=== PATIENT | female | born 1970 | race American Indian/Alaskan Native ===

== ENCOUNTER 2016-10-10 05:58 | Inpatient (IN) | payer BC ==
--- NOTE | 2016-10-04 11:17 | Anesthesia Consultation ---
Anesthesia Consult and Med Hx Date of service: 10/04/16 (Scheduled for robotic hysterectomy with Dr. Rucker on 10/10/16) - Airway Anesthetic Teeth Evaluation: Good ROM Head & Neck: Adequate Mental/Hyoid Distance: Adequate Mallampati Class: Class II Intubation Access Assessment: Probably Good - Pulmonary Exam CTA: Yes - Cardiac Exam Cardiac Exam: RRR Anesthetic Concerns: h/o PONV. - Pre-Operative Health Status ASA Pre-Surgery Classification: ASA2 Proposed Anesthetic Plan: General - Pre-Anesthesia Comment Pre-Anesthesia Comments: h/o PONV - Pulmonary Hx Smoking: No - Cardiovascular System Hx Hypertension: Yes (since age 27) - Central Nervous System Hx Psychiatric Problems: No - Gastrointestinal Hx Gastroesophageal Reflux Disease: No - Endocrine Hx Renal Disease: No Hx Non-Insulin Dependent Diabetes: Yes - Hematic Hx Anemia: No - Other Systems Hx Cancer: No Hx Obesity: No - Additional Comments Anesthesia Medical History Comments: h/o hypokalemia, she takes K+ supplements daily. Last K+ was 3.6 on 09/30/16.
--- NOTE | 2016-10-07 14:30 | Admit Criteria Form ---
Admission Criteria Documentation: AMBULATORY SURGERY EXCEPTION CRITERIA Ambulatory Surgery Exception Criteria ( Place 'X' for any and all applicable criteria): Surgery or procedure performed on ambulatory basis may require inpatient stay for[A] ANY ONE of the following(1)(2)(3)(4)(5)(6)(7)(8)(9): [X] I. A preoperative situation, condition, or finding that warrants inpatient stay as indicated by ANY ONE of the following: [X] a) Inpatient care needed because of severity of a disease or condition rather than the surgery (eg, severe cardiac or respiratory disease, severe infection) (15) (16 ) (17) (18) [] b) Emergent procedure (eg, angioplasty for acute ischemia)(19) [] c) Complex surgical approach or situation as indicated by ANY ONE of the following(3): [] i) Open approach needed instead of usual endoscopic, transcatheter, or other less invasive procedure [] ii) Difficult approach because of previous operation [] iii) Airway monitoring required after open neck procedures(20)(21) [] iv) Large mass requiring unusually extensive dissection [] v) Additional complicating feature requiring inpatient care (eg, drain management)(22(23): [] d) Major surgery in a pt with high anesthetic risk as indicated by ANY ONE of the following (2)(3)(5)(7)(8): [] i) ASA risk class III or higher (severe systemic disease impairing function) [D] [] ii) Advanced age (eg, older than 85 years)(14)(24) [] iii) Symptomatic heart failure(25) [] iv) Symptomatic asthma or COPD(8)(21) [] v) Morbid obesity with hemodynamic or respiratory problems(20)( 21)(26)(27) [] vi) Obstructive sleep apnea(20)(21) [] vii) Former premature infants who are younger than 60 weeks [] viii) High risk for severe postoperative abnormalities (eg, severe postoperative hypocalcemia after parathyroidectomy for severe hyperparathyroidism)(27)( 28) [] ix) Unstable angina(25) [] e) Drug-related risk requiring inpatient stay as indicated by ANY ONE of the following(5)(10)(14)(32)(33) [] i) Procedure requires discontinuing drugs or other therapy (eg , antiarrhythmic medication, antiseizure medication), which necessitates inpatient observation or treatment.(18)(31) [] ii) Major surgery and high risk drug use as indicated by ANY ONE of the following: [] 1) Active abuse of cocaine or similar drug [] 2) Monoamine oxidase inhibitor use [] 3) Other drug identified as posing risk [] f) Inadequate outpatient care situation as indicated by ANY ONE of the following(5)(10)(14)(32)(33) [] i) Patient lives remote from medical facility and procedure has urgent complication potential, and temporary nearby residence cannot be arranged [] ii) Patient will have postprocedure incapacitation and inadequate assistance at home, or alternative level of care cannot be arranged. [] iii) Patient will have long general anesthesia or procedure side effect resolution time, and competent person to stay with patient on first postoperative night at home or alternative level of care cannot be arranged. []iv) Other inadequate outpatient situation that cannot be handled by other means [] II. A perioperative event, condition, or finding that warrants inpatient stay as indicated by ANY ONE of the following (1)(2)(3): [] a) Inadequate physiologic recovery: cardiovascular, respiratory, or hemodynamic status not normal or near preoperative baseline(18) [] b) Hemodynamic instability [] c) Patient not alert with near normal or baseline mental status [] d) Temperature not normal or as expected and not appropriate for outpatient treatment of condition [] e) Ambulatory or appropriate activity level status not yet achieved post procedure [E](34)(35)(36) [] f) Operative site not appropriate (eg, unexpected or excessive drainage or bleeding) [] g) Postoperative effects not resolved or adequately managed (eg, significant pain or vomiting not appropriate for outpatient or next level of care)(10)(12) [] h) Complicating features requiring inpatient care as indicated by ANY ONE of the following(37): [] i) Severe complications of procedure (eg, bowel injury, airway compromise, vascular injury,severe hemorrhage) [] ii) Extensive (eg, dissection far beyond usual scope of procedure ) or prolonged (eg, 120 minutes beyond usual) surgery needed requiring inpatient postoperative care [] iii) Conversion to an open or complex procedure that requires inpatient care (eg, open vs laparoscopic cholecystectomy, abdominal vs vaginal hysterectomy)(38) [] iv) Comorbid condition or test result identified during or post procedure that requires inpatient care (7) [] v) Malignant hyperthermia(30) [] vi) Other complicating feature requiring inpatient care(22)(23) Inpatient stay may be needed until ALL of the following are present (1)(2)(3)(4) (5)(6)(10)(14)(33)(40): []a) Physiologic recovery: cardiovascular, respiratory, and hemodynamic status normal or near preoperative baseline []b) Hemodynamic stability []c) Patient alert, with near normal or baseline mental status []d) Temperature appropriate: patient afebrile or temperature appropriate for outpt treatment of condition []e) Activity level appropriate: ambulatory or appropriate activity level post procedure []f) Operative site appropriate as indicated by ALL of the following: []i) Site dry or with expected drainage []ii) Any blood noted is as expected for procedure. []g) Postoperative effects resolved or managed as indicated by ALL of the following: []i) Pain management appropriate for outpatient (or next level of) care(10) []ii) Minimal nausea and vomiting: if present, successfully treated with oral medication(12) []iii) Headache, dizziness, or drowsiness (if present) are mild. []h) Voiding status acceptable as indicated by ANY ONE of the following: []i) Voiding spontaneously []ii) No voiding but instructions given for follow-up in 6 to 8 hours []iii) Urinary catheter in place, and instructions given for follow-up []i) Complicating features requiring inpatient care manageable at a lower level of care(37) []j) Comorbid conditions manageable at a lower level of care(37) The original [employer] content created by [employer] has been revised. The portions of the content which have been revised are identified through the use of italic text or in bold, and [employer] has neither reviewed nor approved the modified material. All other unmodified content is copyright [employer]. Please see references footnoted in the original [employer] edition 2016
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
[2016-10-10] MEDS ORDERED: VERSED IV NR (06:00)
[2016-10-10] MEDS ORDERED: NACL 0.9% 1000 ML 1,000 ML IV SCH ×2 (06:00→17:00)
[2016-10-10] MEDS ORDERED: TRANSDERM-SCOP TD NR (06:00)
[2016-10-10] MEDS ORDERED: ZOFRAN IV NR (06:00)
[2016-10-10] MEDS ORDERED: PEPCID PO NR (06:00)
[2016-10-10] MEDS ORDERED: ANCEF/STERILE WATER 2 GM/20 ML 2 GM/20 ML SYRINGE IV NR (07:00)
[2016-10-10] MEDS ORDERED: MARCAINE-EPI 0.25%-1:200,000 INFILTRATI ONE ×2 (07:20→10:06)
[2016-10-10] MEDS ORDERED: NEOSPORIN GU IR ONE ×2 (07:20→10:06)
[2016-10-10] MEDS ORDERED: ZEMURON IV ONE (07:25)
[2016-10-10] MEDS ORDERED: DILAUDID ONE ×2 (07:25→12:34)
[2016-10-10] MEDS ORDERED: DIPRIVAN 10 MG/ML IV ONE (07:25)
[2016-10-10] MEDS ORDERED: XYLOCAINE MPF 2% ONE (07:25)
--- NOTE | 2016-10-10 07:44 | Anesthesia Day of Surgery ---
Anesthesia Day of Surgery - Day of Surgery Patient Examined: Yes Patient H&P Reviewed: Yes Patient is NPO: Yes Beta Blockers: Yes
[2016-10-10] MEDS ORDERED: ZOFRAN ONE (09:01)
[2016-10-10] MEDS ORDERED: NEOSTIGMINE ONE (09:02)
[2016-10-10] MEDS ORDERED: ROBINUL ONE ×2 (09:02→10:09)
[2016-10-10] MEDS ORDERED: TORADOL ONE (09:02)
[2016-10-10] MEDS ORDERED: NACL 0.9% 1000 ML 1,000 ML ONE ×2 (09:06→11:35)
[2016-10-10] MEDS ORDERED: LASIX PO PRN (10:03)
[2016-10-10] MEDS ORDERED: NACL 0.9% IR ONE ×2 (10:06→10:07)
--- NOTE | 2016-10-10 10:26 | Operative Report ---
Operative Report Operative Report: Date of procedure: 10/10/2016 Pre-operative diagnosis: Menorrhalgia with dysmenorrhea and failed medical therapy Post-operative diagnosis: Same plus pelvic adhesive disease Procedure name(s):Robotic Assisted Total Hysterectomy with bilateral salpingectomy with lysis of adhesions Surgeon: Dereck Rucker MD Exhibit Electrician: Sylwia Hummel Anesthesia: General EBL: 25 mL Complications: None Findings: Uterus approximately 8-10 weeks in size with thick adhesions between anterior abdominal wall and anterior uterus and bladder also adhesions between the left adnexa and the left sidewall. Had normal appearing ovaries bilaterally. Specimen(s): Uterus with cervix and bilateral fallopian tubes Procedure: Patient was brought to the operating room where general anesthesia was induced without difficulty. Patient was placed in the dorsal lithotomy position. Prepped and draped in the usual sterile manner for robotic procedure. Tompkins catheter was placed without difficulty. Speculum was placed in the vagina. A large V-Care Uterine manipulator was placed without difficulty. Attention was now switched to the patient's abdomen. A vertical supra-umbilicus incision was made with a scalpel. A 10-12 trocar was placed in this incision under direct visualization. Intra-abdominal placement was verified with no evidence of internal organ damage. The patient pelvic findings were noted as above. It was determined that the patient was a candidate for robotic procedure. On both sides the umbilical incision at about 8 cm, incisions were made for robotic trocar. Each robotic trocar was placed under direct visualization with no evidence of internal organ damage. Two regulatory affairs assistant ports were then placed. A 5 mm trocar was placed 2 fingerbreadths above the right iliac crest. The second [address] between the camera port and the right robotic arms port. At this time the patient was placed in extreme Trendelenburg. The da Theo robot was then docked on the patient's left side. The trocars connected to the robot appropriately. At this time I took my place under the robotic operating oliva. The patient's findings as noted above. Using a bipolar and robotic scissors the adhesions between the anterior uterus and the bladder were taken down without any evidence of injury to the bladder. With lysis of adhesions and anatomy was restored. Starting on the patient's right side the mesosalpinx of the tube were cauterized for mild distal to proximal tube. Bipolar cautery was placed across the proximal portion of the fallopian tube. This area was cauterized and cut the fallopian tube was then removed from the large assistant manager airside operations port. Utero-ovarian complex was cauterized and cut. This was followed by cauterizing and cutting the right fallopian tube and right round ligament. The broad ligament was then opened. The bladder flap was formed anteriorly. The posterior broad ligament was then excised. The uterine vessels were skeletonized. The ureter was clearly seen out of the operative field. The bladder was pushed away from the anterior uterus. Attention was then switched to the patient's left side. After lysing the adhesions between the fallopian tube and the sidewall, the same procedure was repeated on the left side with perform the salpingectomy followed by isolating the uterine vessels cauterized and cutting and completing the bladder flap from the left side. At this time the uterus was appearing very cyanotic. After inspecting the bladder flap insured no evidence of bladder injury, the colpotomy was then started. Incision started at 6:00 until the V-Care could be seen. This incision was extended from 6:00 to 9:00. Then from 6:00 to 3:00. Then from 9:00 to 12:00. This incision was extended from 3:00 to 12:00. At this time colpotomy was complete with no evidence of adjacent organ damage. The regulatory affairs assistant remove the uterus from through the colpotomy site. The vaginal cuff was irrigated and cauterized and found to be hemostatic. The cuff was closed with roboticly using 0 V- Lock suture. This closure was hemostatic after irrigation and Bovie. All pedicles were inspected and found to be hemostatic. The ureters were identified bilaterally and found to be functioning normal. The patient had clear urine in the Tompkins catheter with no evidence of mixture with blood. Jerry was placed on the cuff and pedicles for postoperative hemostasis . All instruments were then removed. The large trocar sites were closed in layers and 4-0 Vicryl. The smaller incisions were closed subcuticularly with 4- 0 Vicryl. The patient tolerated procedure well. She was awakened in the operating room and accompanied to the recovery room in good condition.
[2016-10-10] MEDS: DILAUDID IV PRN ×3 (11:03→12:40)
--- NOTE | 2016-10-10 11:07 | Post Anesthesia Evaluation ---
- Post Anesthesia Evaluation Patient Participated: Yes Airway Patent: Yes Stable Respiratory Function: Yes Nausea/Vomiting: No Temp > 96.8F: Yes Pain Manageable: Yes Adequeate Hydration: Yes Anesthesia Complications: No
[2016-10-10] MEDS ORDERED: TORADOL IV SCH (13:30)
[2016-10-10] MEDS ORDERED: D5LR 1,000 ML IV SCH (13:30)
[2016-10-10 13:40] LABS: Anion Gap 15 mmol/L; Blood Urea Nitrogen 8 mg/dL (7-17); Calcium 8.3 mg/dL (8.4-10.2); Carbon Dioxide 25 mmol/L (22-30); Chloride 103.3 mmol/L (98-107); Glucose 133 mg/dL (65-100); Potassium 3.2 mmol/L (3.6-5.0); Sodium 140 mmol/L (137-145)
[2016-10-10] MEDS: ANCEF/NS 1 GM/50 ML 1 GM/50 ML BAG IV SCH (15:55)
[2016-10-10] MEDS ORDERED: ZOFRAN IV PRN (16:58)
--- NOTE | 2016-10-10 18:43 | Event Note ---
Date: 10/10/16 Day of surgery. Discuss operative findings with patient and questions answered. Patient without fever. Will ambulate in halls this evening. Good urine output. We will continue routine postoperative care.
[2016-10-10] MEDS: NORCO 5/325 PO PRN (20:33)
[2016-10-10] MEDS: TORADOL IV SCH (22:11)
[2016-10-10] MEDS: COLACE PO SCH (22:12)
[2016-10-11] MEDS: ANCEF/NS 1 GM/50 ML 1 GM/50 ML BAG IV SCH (00:42)
[2016-10-11 04:22] LABS: Hematocrit 34.5 % (30.3-42.9); Hemoglobin 11.2 gm/dl (10.1-14.3)
[2016-10-11 04:25] LABS: Anion Gap 15 mmol/L; BUN/Creatinine Ratio 7.14; Blood Urea Nitrogen 5 mg/dL (7-17); Calcium 7.7 mg/dL (8.4-10.2); Carbon Dioxide 25 mmol/L (22-30); Chloride 101.1 mmol/L (98-107); Glucose 113 mg/dL (65-100); Sodium 138 mmol/L (137-145)
[2016-10-11 04:28] LABS: Potassium 2.6 mmol/L (3.6-5.0)
[2016-10-11] MEDS: TORADOL IV SCH (05:39)
[2016-10-11] MEDS ORDERED: KCL 10MEQ/100ML 10 MEQ/100 ML BAG IV SCH (06:00)
[2016-10-11] MEDS ORDERED: LUGOL'S SOLUTION 5% PO SCH (07:00)
[2016-10-11] MEDS ORDERED: GLUCOPHAGE PO SCH (08:00)
[2016-10-11] MEDS ORDERED: K-DUR PO ONE (09:30)
[2016-10-11] MEDS: NORCO 5/325 PO PRN (09:47)
[2016-10-11] MEDS: COLACE PO SCH (09:48)
[2016-10-11] MEDS ORDERED: TENORMIN PO SCH (10:00)
[2016-10-11] MEDS ORDERED: NON-FORMULARY (Atenolol/Chlorthalidone [Tenoretic 50-25] 1 TAB) PO SCH (10:00)
[2016-10-11] MEDS ORDERED: THALITONE PO SCH (10:00)
[2016-10-11 11:55] VITALS: BP 106/60
--- NOTE | 2016-10-11 12:03 | Discharge Summary ---
Providers - Providers Date of Admission: 10/10/16 10:11 Date of discharge: 10/11/16 Attending physician: DOV ROBLES Primary care physician: ELEVATING GRADER OPERATOR Hospitalization Reason for admission: menorrhalgia and dysmenorrhea Condition: Good Procedures: Robotic-assisted total hysterectomy with bilateral salpingectomy and lysis of adhesions Hospital course: Patient was admitted and underwent above procedure without complications. Her post operative course was benign she was afebrile throughout. Patient postoperative day 1 hematocrit was in an acceptable range. Patient had no orthostatic symptoms. Patient was tolerating regular diet and voiding without difficulty at time of discharge. Patient incision was healing well without evidence of infection. Patient blood sugar was within normal limits patient did have low potassium but was asymptomatic and patient desires to resume her potassium at home. Disposition: DISCHARGED TO HOME OR SELFCARE - Discharge Diagnoses (1) Menorrhagia Status: Resolved Qualifiers: Menorrahagia type: with regular cycle Qualified Code(s): N92.0 - Excessive and frequent menstruation with regular cycle (2) Dysmenorrhea Status: Resolved (3) Hypertension Status: Chronic Qualifiers: Hypertension type: essential hypertension Qualified Code(s): I10 - Essential (primary) hypertension (4) Diabetes mellitus Status: Chronic Qualifiers: Diabetes mellitus type: type 2 Diabetes mellitus complication status: without complication Diabetes mellitus complication detail: D Diabetic retinopathy severity: D Proliferative retinopathy type: P Diabetes mellitus macular edema: D Diabetes mellitus terminal make up operator insulin use: D Laterality: L Chronic kidney disease stage: C Core Measure Documentation - Palliative Care Palliative Care/ Comfort Measures: Not Applicable - Core Measures Any of the following diagnoses?: none Exam - Constitutional Vitals: Temp Pulse Resp BP Pulse Ox 98.2 F 57 L 18 106/60 98 10/11/16 11:55 10/11/16 11:55 10/11/16 11:55 10/11/16 11:55 10/10/16 13:00 General appearance: Present: no acute distress - Neck Neck: Present: supple - Respiratory Respiratory effort: normal - Cardiovascular Rhythm: regular - Extremities Extremities: no ischemia Peripheral Pulses: within normal limits - Abdominal General gastrointestinal: Present: soft, tender (appropriately), distended ( slightly), normal bowel sounds, other ( with flatus incisions healing well) Female genitourinary: Present: deferred - Integumentary Integumentary: Present: clear, warm, dry - Musculoskeletal Musculoskeletal: strength equal bilaterally - Psychiatric Psychiatric: appropriate mood/affect, intact judgment & insight Plan Activity: advance as tolerated Diet: regular, diabetic Wound: open to air, per your surgeon's advice Follow up with: PRIMARY CARE,MD [Primary Care Provider] - 7 Days Prescriptions: Ferrous Sulfate [Feosol 325 MG tab] 325 mg PO BID #60 tablet Ibuprofen [Motrin 800 MG tab] 800 mg PO Q6H PRN #30 tablet PRN Reason: Pain oxyCODONE /ACETAMINOPHEN [Percocet 5/325 mg] 1 - 2 tab PO Q4H PRN #30 tablet PRN Reason: Pain, Moderate
== END 2016-10-11 12:45 | disposition home or self-care (01) | DRG 743 ==
LOC: OR 05:58 → OB 10:11
PROVIDERS: ADMIT Obstetrics & Gynecology; ATTEND Obstetrics & Gynecology
PROC: 0UT94ZZ Resection of Uterus, Percutaneous Endoscopic Approach (ICD-10-PCS; principal; 2016-10-10)
PROC: 0UTC4ZZ Resection of Cervix, Percutaneous Endoscopic Approach (ICD-10-PCS; 2016-10-10)
PROC: 0UN74ZZ Release Bilateral Fallopian Tubes, Percutaneous Endoscopic Approach (ICD-10-PCS; 2016-10-10)
PROC: 0UT74ZZ Resection of Bilateral Fallopian Tubes, Percutaneous Endoscopic Approach (ICD-10-PCS; 2016-10-10)
PROC: 8E0W4CZ Robotic Assisted Procedure of Trunk Region, Percutaneous Endoscopic Approach (ICD-10-PCS; 2016-10-10)
PROC: 0UN94ZZ Release Uterus, Percutaneous Endoscopic Approach (ICD-10-PCS; 2016-10-10)
DX: N92.0 Excessive and frequent menstruation with regular cycle (principal); E11.9 Type 2 diabetes mellitus without complications; N94.6 Dysmenorrhea, unspecified; I10 Essential (primary) hypertension; F32.9 Major depressive disorder, single episode, unspecified; Z88.5 Allergy status to narcotic agent; Z79.84 Long term (current) use of oral hypoglycemic drugs; Z98.890 Other specified postprocedural states; Z90.710 Acquired absence of both cervix and uterus
CPT/HCPCS: 36415; 80048; 82962; 84132; 84703; 85014; 85018; 86850; 86900; 86901; 88305; 88307; A4217; J0690; J1170; J1885; J2250; J2405; J2704; J2710; J3480; J7030; J7121